=== PATIENT | female | born 1955 | race Caucasian/White ===

== ENCOUNTER 2023-01-22 21:31 | Inpatient (IN) | payer OTHER ==
[~2023-01-22] VITALS: Ht 157.5 cm; Wt 103.9 kg
[2023-01-22 21:34] VITALS: BP 126/56; PULSE 66; RESP 18; TEMP 99.1; O2SAT 94; O2SAT 98
[2023-01-22 23:52] LABS: APPEARANCE,URINE SL CLOUDY (CLEAR); BILIRUBIN,URINE NEGATIVE (NEGATIVE); BLOOD, URINE 2+ (NEGATIVE); COLOR,URINE YELLOW (YELLOW); LEUKOCYTE ESTERASE ,URINE 2+ (NEGATIVE); NITRITE, URINE NEGATIVE (NEGATIVE); PROTEIN,URINE TRACE (NEGATIVE); UGLUCOSE 1+ (NEGATIVE); UROBILINOGEN,URINE 0.2 EU/dL (0.2 - 1)
[2023-01-22 23:54] LABS: BASOPHILS # (AUTO) 0.1 K/uL (0.00-0.22); BASOPHILS % (AUTO) 0.4 % (0.0-2.0); EOSINOPHILS % (AUTO) 0.1 % (0.0-4.0); HEMATOCRIT 37.7 % (36-48); HEMOGLOBIN 12.5 g/dL (12.0-16.0); LYMPHOCYTES # (AUTO) 1.1 K/uL (2.5-16.5); LYMPHOCYTES % (AUTO) 7.4 % (20.5-51.1); MEAN CORPUSCULAR HEMOGLOBIN 31 pg (27-31); MEAN CORPUSCULAR HGB CONC 33 g/dL (33-37); MEAN CORPUSCULAR VOLUME 94.7 fL (80-94); MONOCYTES # (AUTO) 0.6 K/uL (0.8-1.0); MONOCYTES % (AUTO) 4.1 % (1.7-9.3); NEUTROPHILS # (AUTO) 12.9 K/uL (1.8-7.7); PLATELET COUNT (AUTO) 274 K/uL (140-450); RED BLOOD CELL COUNT(AUTO) 3.98 MIL/uL (4.20-5.40); RED CELL DISTRIBUTION WIDTH 13.5 % (11.6-13.7); WHITE BLOOD COUNT (AUTO) 14.6 K/uL (4.8-10.8)
[2023-01-23 00:13] LABS: BACTERIA,URINE 2+ /HPF (None Seen); WBC,URINE >25 (MANY) /HPF (0-5)
[2023-01-23 00:14] LABS: YEAST,URINE Few /HPF (None Seen)
[2023-01-23 00:17] LABS: ALBUMIN 2.9 g/dL (3.4-5.0); ANION GAP 13.9 (8-16); CALCIUM 10.2 mg/dL (8.5-10.1); CARBON DIOXIDE 30.4 mmol/L (21-32); CREATININE 2.4 mg/dL (0.6-1.3); POTASSIUM 5.3 mmol/L (3.5-5.1); TOTAL BILIRUBIN 0.7 mg/dL (0.0-1.0); TOTAL PROTEIN, SERUM 8.2 g/dL (6.4-8.2)
[2023-01-23] MEDS ORDERED: INSULIN REGULAR, HUMAN 100 UNIT/ML VIAL IVP ONE (00:55)
[2023-01-23] MEDS ORDERED: cefTRIAXone 1,000 MG VIAL ONE (01:02)
[2023-01-23] MEDS ORDERED: DEXTROSE 50% 50 ML SYR IVP PRN (02:20)
[2023-01-23] MEDS ORDERED: MORPHINE SULFATE 2 MG/ML SYR IVP PRN (02:20)
[2023-01-23] MEDS ORDERED: ACETAMINOPHEN 325 MG TAB PO PRN (02:20)
[2023-01-23] MEDS ORDERED: HYDROcodone/APAP 5/325 MG 1 TAB TAB PO PRN (02:20)
[2023-01-23] MEDS: NACL 0.9% 1,000 ML IV SCH ×2 (02:20→22:20)
[2023-01-23 07:30] VITALS: O2SAT 98
[2023-01-23] MEDS: BLOOD GLUCOSE MONITORING 1 DEV DEV FS SCH ×4 (07:47→21:00)
[2023-01-23] MEDS: INSULIN LISPRO SLIDING SCALE 100 UNITS/ML VIAL SUBQ PRN ×2 (08:09→12:06)
[2023-01-23] MEDS: TAMSULOSIN 0.4 MG CAP PO SCH (08:09)
[2023-01-23] MEDS ORDERED: LOPERAMIDE 2 MG CAP PO PRN (08:45)
[2023-01-24 07:30] VITALS: O2SAT 98
[2023-01-24] MEDS: BLOOD GLUCOSE MONITORING 1 DEV DEV FS SCH ×4 (07:30→21:00)
[2023-01-24] MEDS: TAMSULOSIN 0.4 MG CAP PO SCH (08:30)
[2023-01-24 09:00] VITALS: RESP 16; RESP 18; O2SAT 93
[2023-01-24 12:00] VITALS: BP 141/60; PULSE 94; RESP 18; TEMP 99.3; O2SAT 99
[2023-01-24] MEDS: NACL 0.9% 1,000 ML IV SCH (18:20)
[2023-01-24 20:00] VITALS: RESP 18; O2SAT 99
[2023-01-25] MEDS: BLOOD GLUCOSE MONITORING 1 DEV DEV FS SCH ×4 (07:30→20:41)
[2023-01-25 08:00] VITALS: BP 149/46; PULSE 87; RESP 18; TEMP 97.4; O2SAT 96; O2SAT 97
[2023-01-25] MEDS: TAMSULOSIN 0.4 MG CAP PO SCH (08:30)
[2023-01-25 09:44] LABS: BASOPHILS % (AUTO) 0.7 % (0.0-2.0); EOSINOPHILS % (AUTO) 0.1 % (0.0-4.0); HEMATOCRIT 35.2 % (36-48); HEMOGLOBIN 11.7 g/dL (12.0-16.0); LYMPHOCYTES # (AUTO) 0.9 K/uL (2.5-16.5); LYMPHOCYTES % (AUTO) 17.1 % (20.5-51.1); MEAN CORPUSCULAR HEMOGLOBIN 31 pg (27-31); MEAN CORPUSCULAR HGB CONC 33 g/dL (33-37); MEAN CORPUSCULAR VOLUME 94.1 fL (80-94); MONOCYTES # (AUTO) 0.9 K/uL (0.8-1.0); MONOCYTES % (AUTO) 15.6 % (1.7-9.3); NEUTROPHILS # (AUTO) 3.7 K/uL (1.8-7.7); NEUTROPHILS % (AUTO) 66.5 % (42.2-75.2); PLATELET COUNT (AUTO) 256 K/uL (140-450); RED BLOOD CELL COUNT(AUTO) 3.74 MIL/uL (4.20-5.40); RED CELL DISTRIBUTION WIDTH 13.3 % (11.6-13.7); WHITE BLOOD COUNT (AUTO) 5.5 K/uL (4.8-10.8)
[2023-01-25 09:51] LABS: ANION GAP 15.8 (8-16); CREATININE 1.3 mg/dL (0.6-1.3); POTASSIUM 3.8 mmol/L (3.5-5.1)
[2023-01-25] MEDS: INSULIN LISPRO SLIDING SCALE 100 UNITS/ML VIAL SUBQ PRN ×3 (11:58→20:41)
[2023-01-25] MEDS: NACL 0.9% 1,000 ML IV SCH (15:29)
[2023-01-25 20:00] VITALS: BP 116/78; PULSE 83; RESP 17; TEMP 97.6; O2SAT 99
[2023-01-25] MEDS: LINEZOLID 600MG PREMIX 300 ML IV SCH (20:35)
[2023-01-26 04:00] VITALS: BP 112/35; PULSE 60; RESP 18; TEMP 97.5; O2SAT 95
[2023-01-26 05:27] LABS: BASOPHILS % (AUTO) 0.5 % (0.0-2.0); EOSINOPHILS % (AUTO) 0.6 % (0.0-4.0); HEMATOCRIT 32.6 % (36-48); HEMOGLOBIN 10.9 g/dL (12.0-16.0); LYMPHOCYTES # (AUTO) 1.6 K/uL (2.5-16.5); LYMPHOCYTES % (AUTO) 34.8 % (20.5-51.1); MEAN CORPUSCULAR HEMOGLOBIN 31 pg (27-31); MEAN CORPUSCULAR HGB CONC 34 g/dL (33-37); MEAN CORPUSCULAR VOLUME 93.9 fL (80-94); MONOCYTES # (AUTO) 0.8 K/uL (0.8-1.0); MONOCYTES % (AUTO) 17.8 % (1.7-9.3); NEUTROPHILS # (AUTO) 2.1 K/uL (1.8-7.7); NEUTROPHILS % (AUTO) 46.3 % (42.2-75.2); PLATELET COUNT (AUTO) 226 K/uL (140-450); RED BLOOD CELL COUNT(AUTO) 3.47 MIL/uL (4.20-5.40); RED CELL DISTRIBUTION WIDTH 13.4 % (11.6-13.7); WHITE BLOOD COUNT (AUTO) 4.5 K/uL (4.8-10.8)
[2023-01-26 05:50] LABS: ALBUMIN 2.2 g/dL (3.4-5.0); CALCIUM 9.2 mg/dL (8.5-10.1); CARBON DIOXIDE 29.3 mmol/L (21-32); CREATININE 1.1 mg/dL (0.6-1.3); POTASSIUM 3.3 mmol/L (3.5-5.1); TOTAL BILIRUBIN 0.4 mg/dL (0.0-1.0)
[2023-01-26] MEDS: INSULIN LISPRO SLIDING SCALE 100 UNITS/ML VIAL SUBQ PRN ×2 (06:43→12:39)
[2023-01-26] MEDS: BLOOD GLUCOSE MONITORING 1 DEV DEV FS SCH ×3 (06:45→16:30)
[2023-01-26] MEDS ORDERED: MORPHINE SULFATE 2 MG/ML SYR IVP PRN (07:45)
[2023-01-26] MEDS ORDERED: MAG SULF 2000 MG/WATER PREMIX 50 ML IV PRN (07:45)
[2023-01-26] MEDS ORDERED: DOCUSATE SODIUM 100 MG GELCAP PO PRN (07:45)
[2023-01-26] MEDS ORDERED: ONDANSETRON 4 MG/2 ML VIAL IVP PRN (07:45)
[2023-01-26] MEDS ORDERED: ACETAMINOPHEN 325 MG TAB PO PRN (07:45)
[2023-01-26] MEDS ORDERED: ZOLPIDEM 10 MG TAB PO PRN (07:45)
[2023-01-26] MEDS ORDERED: POTASSIUM CHLORIDE 10 MEQ TABER PO PRN (07:45)
[2023-01-26 08:00] VITALS: BP 124/36; PULSE 65; RESP 16; TEMP 97.7; O2SAT 99
[2023-01-26] MEDS: LINEZOLID 600MG PREMIX 300 ML IV SCH (08:15)
[2023-01-26] MEDS: TAMSULOSIN 0.4 MG CAP PO SCH (08:15)
[2023-01-26] MEDS: NACL 0.9% 1,000 ML IV SCH (10:20)
[2023-01-26] MEDS ORDERED: LINE600T4 PO (10:44)
[2023-01-26] MEDS ORDERED: HUMSLIDE SUBQ (10:44)
[2023-01-26 16:00] VITALS: BP 125/44; PULSE 77; RESP 18; TEMP 98.1; O2SAT 100
== END 2023-01-26 18:35 | disposition home health service (06) | DRG 871 ==
LOC: MED 21:31 → MTU 01-23 02:24
PROVIDERS: ADMIT Internal Medicine; ATTEND Internal Medicine
DX: A41.9 Sepsis, unspecified organism (principal); E43 Unspecified severe protein-calorie malnutrition; N17.0 Acute kidney failure with tubular necrosis; T83.518A Infection and inflammatory reaction due to other urinary catheter, initial encounter; N39.0 Urinary tract infection, site not specified; Z68.41 Body mass index [BMI] 40.0-44.9, adult; I69.354 Hemiplegia and hemiparesis following cerebral infarction affecting left non-dominant side; E11.22 Type 2 diabetes mellitus with diabetic chronic kidney disease; N18.32 Chronic kidney disease, stage 3b; I48.91 Unspecified atrial fibrillation; Z79.899 Other long term (current) drug therapy; Z91.040 Latex allergy status; Z91.048 Other nonmedicinal substance allergy status
CPT/HCPCS: 36415; 80048; 80053; 81001; 82948; 83735; 85025; 87086; 87186; 93005; 96365; 96375; 99291; J0696; J1644; J1815; J2020; J7060